=== PATIENT | male | born 1970 | race Caucasian/White ===

== ENCOUNTER → 2016-11-25 | Day surgery (SDC) | payer OTHER ==
[~2016-11-25] VITALS: Ht 167.6 cm; Wt 88.5 kg
[2016-11-25 06:58] VITALS: BP 124/78
[2016-11-25 10:46] VITALS: BP 118/79
== END | disposition home or self-care (01) ==
LOC: DS 06:30 → OR 09:00 → DS 09:00 → EDBD 09:00
PROVIDERS: Anesthesiology Pain Medicine
PROC: 3E0R3CZ (ICD-10-PCS; 2016-11-25)
PROC: B01B1ZZ Fluoroscopy of Spinal Cord using Low Osmolar Contrast (ICD-10-PCS; 2016-11-25)
PROC: 3E0R33Z Introduction of Anti-inflammatory into Spinal Canal, Percutaneous Approach (ICD-10-PCS; principal; 2016-11-25 09:00)
DX: M50.10 Cervical disc disorder with radiculopathy, unspecified cervical region (principal); M47.12 Other spondylosis with myelopathy, cervical region; M47.22 Other spondylosis with radiculopathy, cervical region; M51.16 Intervertebral disc disorders with radiculopathy, lumbar region; M47.26 Other spondylosis with radiculopathy, lumbar region; M46.1 Sacroiliitis, not elsewhere classified; G89.4 Chronic pain syndrome; Z68.31 Body mass index [BMI] 31.0-31.9, adult
CPT/HCPCS: 77003; J2250; J3490; J7040; Q0092

== ENCOUNTER → 2017-01-27 | Day surgery (SDC) | payer OTHER ==
[~2017-01-27] VITALS: Ht 167.6 cm; Wt 88.5 kg
[2017-01-27 07:15] VITALS: BP 112/54
[2017-01-27 10:33] VITALS: BP 148/74
== END | disposition home or self-care (01) ==
LOC: DS 06:27 → OR 08:30
PROVIDERS: Anesthesiology Pain Medicine
PROC: 3E0S3BZ Introduction of Anesthetic Agent into Epidural Space, Percutaneous Approach (ICD-10-PCS; 2017-01-27)
PROC: B01B1ZZ Fluoroscopy of Spinal Cord using Low Osmolar Contrast (ICD-10-PCS; 2017-01-27)
PROC: 3E0S33Z Introduction of Anti-inflammatory into Epidural Space, Percutaneous Approach (ICD-10-PCS; principal; 2017-01-27 08:00)
DX: M50.10 Cervical disc disorder with radiculopathy, unspecified cervical region (principal); G89.29 Other chronic pain
CPT/HCPCS: 77003; J1100; J2001; J2704; J3490; J7040; Q9967

== ENCOUNTER 2017-03-24 06:46 | Day surgery (SDC) | payer OTHER ==
[~2017-03-24] VITALS: Ht 167.6 cm; Wt 88.5 kg
[2017-03-24 07:25] VITALS: BP 133/72
[2017-03-24 10:14] VITALS: BP 132/85
== END 2017-03-24 10:00 | disposition home or self-care (01) ==
LOC: DS 06:46 → OR 09:00 → DS 09:00
PROVIDERS: Anesthesiology Pain Medicine
PROC: 3E0T3BZ Introduction of Anesthetic Agent into Peripheral Nerves and Plexi, Percutaneous Approach (ICD-10-PCS; 2017-03-24)
PROC: 3E0T33Z Introduction of Anti-inflammatory into Peripheral Nerves and Plexi, Percutaneous Approach (ICD-10-PCS; principal; 2017-03-24 09:00)
DX: M47.12 Other spondylosis with myelopathy, cervical region (principal); M47.22 Other spondylosis with radiculopathy, cervical region; M47.816 Spondylosis without myelopathy or radiculopathy, lumbar region; M51.26 Other intervertebral disc displacement, lumbar region; G89.4 Chronic pain syndrome; Z68.31 Body mass index [BMI] 31.0-31.9, adult
CPT/HCPCS: 77003; J2001; J3490; J7040; Q0092; Q9967

== ENCOUNTER 2017-06-16 07:09 | Day surgery (SDC) | payer OTHER ==
[~2017-06-16] VITALS: Ht 167.6 cm; Wt 81.2 kg
[2017-06-16 07:47] VITALS: BP 100/63
[2017-06-16 10:23] VITALS: BP 117/64
== END 2017-06-16 10:10 | disposition home or self-care (01) ==
LOC: DS 07:09 → OR 08:30 → DS 09:30
PROVIDERS: Anesthesiology Pain Medicine
PROC: 3E0U3BZ Introduction of Anesthetic Agent into Joints, Percutaneous Approach (ICD-10-PCS; 2017-06-16)
PROC: 3E0U33Z Introduction of Anti-inflammatory into Joints, Percutaneous Approach (ICD-10-PCS; principal; 2017-06-16 09:00)
DX: M47.812 Spondylosis without myelopathy or radiculopathy, cervical region (principal); G89.4 Chronic pain syndrome; Z68.31 Body mass index [BMI] 31.0-31.9, adult
CPT/HCPCS: 77003; J2001; J2250; J2704; J3010; J3490; J7040

== ENCOUNTER 2017-08-04 06:05 | Day surgery (SDC) | payer OTHER ==
[~2017-08-04] VITALS: Ht 167.6 cm; Wt 81.2 kg
[2017-08-04 06:47] VITALS: BP 112/74
[2017-08-04 07:30] LABS: CALCIUM 8.7 mg/dL (8.5-10.1); CARBON DIOXIDE 26.3 mmol/L (21-32); CHLORIDE SERUM 108 mmol/L (98-107); CREATININE SERUM 0.8 mg/dL (0.7-1.3); GFR1 > 60 mL/min; GLUCOSE SERUM 106 mg/dL (74-106); SODIUM SERUM 140 mmol/L (136-145)
[2017-08-04 07:54] LABS: PLATELET COUNT 292 x10^3mcL (130-400); RED CELL DISTRIBUTION WIDTH 13.2 % (11.5-14.5)
[2017-08-04 07:57] LABS: BASOPHIL % 2.1 % (0-2)
[2017-08-04 09:55] VITALS: BP 128/77
== END 2017-08-04 09:50 | disposition home or self-care (01) ==
LOC: DS 06:05 → OR 08:00 → DS 08:00
PROVIDERS: Anesthesiology Pain Medicine
PROC: BR141ZZ Fluoroscopy of Cervical Facet Joint(s) using Low Osmolar Contrast (ICD-10-PCS; 2017-08-04)
PROC: 3E0T3TZ Introduction of Destructive Agent into Peripheral Nerves and Plexi, Percutaneous Approach (ICD-10-PCS; principal; 2017-08-04 07:30)
DX: M47.892 Other spondylosis, cervical region (principal); G89.4 Chronic pain syndrome; F17.210 Nicotine dependence, cigarettes, uncomplicated; E66.2 Morbid (severe) obesity with alveolar hypoventilation; Z68.29 Body mass index [BMI] 29.0-29.9, adult
CPT/HCPCS: 77003; J1100; J1170; J2001; J2250; J2405; J2704; J3010; J3490; J7040

== ENCOUNTER 2017-11-24 05:50 | Day surgery (SDC) | payer OTHER ==
[~2017-11-24] VITALS: Ht 167.6 cm; Wt 81.2 kg
[2017-11-24 06:11] VITALS: BP 118/62
[2017-11-24 09:58] VITALS: BP 129/75
== END 2017-11-24 09:35 | disposition home or self-care (01) ==
LOC: DS 05:50 → OR 07:30 → DS 09:35
PROVIDERS: Anesthesiology Pain Medicine
PROC: BR141ZZ Fluoroscopy of Cervical Facet Joint(s) using Low Osmolar Contrast (ICD-10-PCS; 2017-11-24)
PROC: 3E0T3TZ Introduction of Destructive Agent into Peripheral Nerves and Plexi, Percutaneous Approach (ICD-10-PCS; principal; 2017-11-24 07:30)
DX: M47.22 Other spondylosis with radiculopathy, cervical region (principal); G89.4 Chronic pain syndrome; Z68.29 Body mass index [BMI] 29.0-29.9, adult
CPT/HCPCS: 77003; J1100; J2001; J2250; J2704; J3010; J3490; J7040

== ENCOUNTER 2018-02-02 05:54 | Day surgery (SDC) | payer OTHER ==
[~2018-02-02] VITALS: Ht 167.6 cm; Wt 81.2 kg
[2018-02-02 06:35] VITALS: BP 138/73
[2018-02-02 10:07] VITALS: BP 102/60
== END 2018-02-02 10:30 | disposition home or self-care (01) ==
LOC: DS 05:54 → OR 08:00 → DS 08:00
PROVIDERS: Anesthesiology Pain Medicine
PROC: 3E0U3BZ Introduction of Anesthetic Agent into Joints, Percutaneous Approach (ICD-10-PCS; 2018-02-02)
PROC: BR161ZZ Fluoroscopy of Lumbar Facet Joint(s) using Low Osmolar Contrast (ICD-10-PCS; 2018-02-02)
PROC: 3E0U33Z Introduction of Anti-inflammatory into Joints, Percutaneous Approach (ICD-10-PCS; principal; 2018-02-02 08:00)
DX: M47.896 Other spondylosis, lumbar region (principal); G89.29 Other chronic pain
CPT/HCPCS: 77003; J1100; J2001; J2250; J2704; J3010; J3301; J3490; J7040

== ENCOUNTER 2018-06-01 05:38 | Day surgery (SDC) | payer OTHER ==
[~2018-06-01] VITALS: Ht 167.6 cm; Wt 81.6 kg
[2018-06-01 06:23] VITALS: BP 123/79
[2018-06-01 10:46] VITALS: BP 122/80
== END 2018-06-01 10:25 | disposition home or self-care (01) ==
LOC: DS 05:38 → OR 07:30 → DS 10:25
PROVIDERS: Anesthesiology Pain Medicine
PROC: BR14ZZZ Fluoroscopy of Cervical Facet Joint(s) (ICD-10-PCS; 2018-06-01)
PROC: 3E0T3TZ Introduction of Destructive Agent into Peripheral Nerves and Plexi, Percutaneous Approach (ICD-10-PCS; principal; 2018-06-01 07:30)
DX: M47.892 Other spondylosis, cervical region (principal); G89.4 Chronic pain syndrome
CPT/HCPCS: 77003; J1100; J2001; J2250; J3010; J3301; J3490; J7120; Q9967

== ENCOUNTER 2018-08-17 05:45 | Day surgery (SDC) | payer OTHER ==
[~2018-08-17] VITALS: Ht 167.6 cm; Wt 81.2 kg
[2018-08-17 06:08] VITALS: BP 125/72
[2018-08-17 09:01] VITALS: BP 116/76
== END 2018-08-17 09:30 | disposition home or self-care (01) ==
LOC: DS 05:45 → OR 07:30 → DS 07:30
PROVIDERS: Anesthesiology Pain Medicine
PROC: 3E0U3BZ Introduction of Anesthetic Agent into Joints, Percutaneous Approach (ICD-10-PCS; 2018-08-17)
PROC: 3E0U33Z Introduction of Anti-inflammatory into Joints, Percutaneous Approach (ICD-10-PCS; principal; 2018-08-17 08:20)
DX: M47.897 Other spondylosis, lumbosacral region (principal); G89.4 Chronic pain syndrome; Z87.891 Personal history of nicotine dependence
CPT/HCPCS: 77003; J2001; J2250; J3010; J3301; J7040; Q9967

== ENCOUNTER → 2018-11-30 | Day surgery (SDC) | payer OTHER ==
[~2018-11-30] VITALS: Ht 167.6 cm; Wt 81.2 kg
[2018-11-30 07:13] VITALS: BP 107/80
[2018-11-30 10:31] VITALS: BP 120/73
== END | disposition home or self-care (01) ==
LOC: DS 06:45 → OR 08:30
PROVIDERS: Anesthesiology Pain Medicine
PROC: BR141ZZ Fluoroscopy of Cervical Facet Joint(s) using Low Osmolar Contrast (ICD-10-PCS; 2018-11-30)
PROC: 3E0T3TZ Introduction of Destructive Agent into Peripheral Nerves and Plexi, Percutaneous Approach (ICD-10-PCS; principal; 2018-11-30 08:30)
DX: M47.892 Other spondylosis, cervical region (principal); G89.4 Chronic pain syndrome; E66.3 Overweight; Z68.31 Body mass index [BMI] 31.0-31.9, adult
CPT/HCPCS: 77003; J1100; J2001; J2250; J2704; J3010; J3490; J7040

== ENCOUNTER 2019-02-01 05:35 | Day surgery (SDC) | payer OTHER ==
[~2019-02-01] VITALS: Ht 167.6 cm; Wt 81.2 kg
[2019-02-01 06:40] VITALS: BP 117/76
[2019-02-01 09:58] VITALS: BP 116/75
== END 2019-02-01 09:30 | disposition home or self-care (01) ==
LOC: DS 05:35 → OR 07:30 → DS 07:30
DX: G89.29 Other chronic pain (principal); M47.816 Spondylosis without myelopathy or radiculopathy, lumbar region; M47.27 Other spondylosis with radiculopathy, lumbosacral region; M51.36 Other intervertebral disc degeneration, lumbar region; M51.26 Other intervertebral disc displacement, lumbar region; M50.10 Cervical disc disorder with radiculopathy, unspecified cervical region; M48.02 Spinal stenosis, cervical region; M47.22 Other spondylosis with radiculopathy, cervical region
CPT/HCPCS: J2001; J2250; J2704; J3010; J3301; J3490; J7040; Q9967

== ENCOUNTER 2019-07-05 06:14 | Day surgery (SDC) | payer OTHER ==
[~2019-07-05] VITALS: Ht 167.6 cm; Wt 81.2 kg
[2019-07-05 06:54] VITALS: BP 124/71
[2019-07-05 09:39] VITALS: BP 143/86
== END 2019-07-05 09:35 | disposition home or self-care (01) ==
LOC: DS 06:14
DX: G89.4 Chronic pain syndrome (principal); M48.02 Spinal stenosis, cervical region; M47.22 Other spondylosis with radiculopathy, cervical region; M47.896 Other spondylosis, lumbar region; M51.36 Other intervertebral disc degeneration, lumbar region; M51.26 Other intervertebral disc displacement, lumbar region
CPT/HCPCS: 77003; J1100; J2001; J2250; J3010; J3490; Q0092